=== PATIENT | female | born 1955 | race Caucasian/White ===

== ENCOUNTER 2017-09-29 17:40 | Emergency (ER) | payer BC ==
[2017-09-29 18:49] VITALS: BP 131/65
--- NOTE | 2017-09-29 20:00 | RAD ---
INDICATION: Lateral right foot pain COMPARISON: None TECHNIQUE: AP, lateral, and oblique views were obtained. FINDINGS: There are no acute bony findings. There is moderate first MTP joint osteoarthritis. There are small heel spurs. No additional findings. IMPRESSION: FIRST MTP JOINT OSTEOARTHRITIS
--- NOTE | 2017-09-29 20:02 | UC ---
Lower Extremity/Ankle HPI - HPI Summary HPI Summary: pt is c/o pain to her outside of R foot with pain into R calf x 2-3 days. denies hx of injury. no long travel hx, cp, sob, hx dvt. - History of Current Complaint Chief Complaint: UCLowerExtremity Stated Complaint: RT LEG COMPLAINT Time Seen by Provider: 09/29/17 19:21 Hx Obtained From: Patient Hx Last Menstrual Period: n/a ?: No Onset/Duration: Gradual Onset Pain Intensity: 8 Aggravating Factor(s): Ambulation Alleviating Factor(s): Nothing Able to Bear Weight: Yes - Risk Factors DVT Risk Factors: Negative Septic Arthritis Risk Factor: Negative - Allergies/Home Medications Allergies/Adverse Reactions: Allergies Allergy/AdvReac Type Severity Reaction Status Date / Time sulfamethoxazole Allergy Hives Verified 09/29/17 18:52 [From Bactrim] trimethoprim [From Bactrim] Allergy Hives Verified 09/29/17 18:52 PMH/Surg Hx/FS Hx/Imm Hx Previously Healthy: Yes - Surgical History Surgical History: Yes Surgery Procedure, Year, and Place: , gallblabber removed, and right hand surgery left knee surgery - Family History Known Family History: Positive: None - Social History Occupation: Employed Full-time Alcohol Use: None Substance Use Type: None Smoking Status (MU): Never Smoked Tobacco - Immunization History Vaccination Up to Date: Yes Review of Systems Constitutional: Negative Skin: Negative Eyes: Negative ENT: Negative Respiratory: Negative Cardiovascular: Negative Gastrointestinal: Negative Genitourinary: Negative Motor: Negative Neurovascular: Negative Musculoskeletal: Other: - R foot/calf pain Neurological: Negative Psychological: Negative Is Patient Immunocompromised?: No All Other Systems Reviewed And Are Negative: Yes Physical Exam Triage Information Reviewed: Yes Appearance: Well-Appearing Vital Signs: Initial Vital Signs Temp 97.6 F 09/29/17 18:44 Pulse 115 09/29/17 18:44 Resp 14 09/29/17 18:44 BP 131/65 09/29/17 18:44 Pulse Ox 100 09/29/17 18:44 Vital Signs Reviewed: Yes Eyes: Positive: Conjunctiva Clear ENT: Positive: Normal ENT inspection Neck: Positive: Supple, Nontender, No Lymphadenopathy Respiratory: Positive: Lungs clear, Normal breath sounds Cardiovascular: Positive: No Murmur - HR 56 and irregular Abdomen Description: Positive: Nontender, No Organomegaly, Soft Bowel Sounds: Positive: Present Musculoskeletal: Positive: Other: - RLE: hip/knee non tender. R calf swollen and tender compared to L. ankle non tender. foot with lateral tenderness but no deformity or swelling. s/v/m is intact. Neurological: Positive: Alert Psychological: Positive: Age Appropriate Behavior Diagnostics - Radiology No standard instances Xray Interpretation: No Acute Changes Radiology Interpretation Completed By: Radiologist - EKG Cardiac Rate: Bradycardia Cardiac Rhythm: Sinus: Normal Ectopy: PACs Lower Extremity Course/Dx - Course Course Of Treatment: NON TRAUMATIC R CALF/FOOT PAIN WITH CALF SWELLING. XRAY FOOT NAD. NEEDS ER TRANSFER TO R/O DVT. EKG: SINUS BRADYCARDIA WITH PACS. PT AGREES TO ER TRANSFER-WILL DRIVE SELF. REPORT CALLED TO [facility] ER, [place] [employer] [employer]. ADVISED OF CALF PAIN, R/O DVT AND SINUS BRADYCARDIA WITH PAC'S. XRAY REPORT AND EKG BEING SENT WITH PT. - Differential Dx/Diagnosis Provider Diagnoses: Acute pain R calf/foot. Possible dvt. Discharge - Discharge Plan Condition: Stable Disposition: [facility] Referrals: Francine Jaimes MD [Primary Care Provider] - Additional Instructions: LEAVE THE URGENT CARE AND GO DIRECTLY TO THE EMERGENCY ROOM.
== END 2017-09-29 20:47 | disposition short-term general hospital (02) ==
LOC: UCCORT 17:40
DX: M79.661 Pain in right lower leg (principal); M79.671 Pain in right foot; Z88.1 Allergy status to other antibiotic agents
CPT/HCPCS: 93005; 99212; G0463